=== PATIENT | female | born 1965 | race Caucasian/White ===

== ENCOUNTER 2017-11-22 07:56 | Outpatient (CLI) | payer BC | END 2017-11-22 07:57 | disposition home or self-care (01) | LOC: BICMAMMO 07:56 | PROVIDERS: ATTEND Obstetrics & Gynecology | DX: Z12.31 Encounter for screening mammogram for malignant neoplasm of breast (principal); R92.1 Mammographic calcification found on diagnostic imaging of breast; Z80.3 Family history of malignant neoplasm of breast | CPT/HCPCS: 77063; 77067 ==

== ENCOUNTER 2018-12-27 14:21 | Outpatient (CLI) | payer OTHER ==
--- NOTE | 2018-12-27 15:12 | MMO ---
Bilateral MAMMO Bilat Screen [facility]. CLINICAL HISTORY: Patient is 53 years old and is seen for screening. The patient has no family history of breast cancer. The patient has no personal history of cancer. VIEWS: The views performed were: bilateral craniocaudal with tomosynthesis and bilateral mediolateral oblique with tomosynthesis. FILMS COMPARED: The present examination has been compared to prior imaging studies performed at [facility] on 02/02/2014, 09/21/2015, 09/22/2016 and 11/22/2017. This study has been interpreted with the assistance of computer-aided detection. MAMMOGRAM FINDINGS: The breasts are heterogeneously dense, which could obscure a lesion on mammography. There are no suspicious masses, suspicious calcifications, or new areas of architectural distortion. IMPRESSION: THERE IS NO MAMMOGRAPHIC EVIDENCE OF MALIGNANCY. A ROUTINE FOLLOW-UP MAMMOGRAM IN 1 YEAR IS RECOMMENDED. THE RESULTS OF THIS EXAM WERE SENT TO THE PATIENT. ACR BI-RADS Category 1 - Negative MAMMOGRAPHY NOTE: 1. A negative mammogram report should not delay a biopsy if a dominant of clinically suspicious mass is present. 2. Approximately 10% to 15% of breast cancers are not detected by mammography. 3. Adenosis and dense breasts may obscure an underlying neoplasm. Reported by: ANTHONY BROWNLEE MD Electonically Signed: [id number]
== END 2018-12-27 14:22 | disposition home or self-care (01) ==
LOC: BICMAMMO 14:21
PROVIDERS: ATTEND Obstetrics & Gynecology
DX: Z12.31 Encounter for screening mammogram for malignant neoplasm of breast (principal)
CPT/HCPCS: 77063; 77067

== ENCOUNTER 2021-01-11 14:11 | Outpatient (CLI) | payer BC | END 2021-01-11 14:12 | disposition home or self-care (01) | LOC: BICMAMMO 14:11 | PROVIDERS: ATTEND Obstetrics & Gynecology | DX: Z12.31 Encounter for screening mammogram for malignant neoplasm of breast (principal) | CPT/HCPCS: 77063; 77067 ==

== ENCOUNTER 2022-01-05 06:09 | Day surgery (SDC) | payer BC ==
[2022-01-04 09:51] VITALS: BMI 22.2
[~2022-01-05 06:09] MED LIST: Fluorouracil 100 MG, Enoxaparin Sodium 25 MG, EPINEPHrine 0.3 MG in Ophthalmic Irrigati... IRR SCH
[2022-01-05] MEDS ORDERED: fentaNYL Citrate/PF 100 MCG/2 ML SYRINGE ONE (06:38)
[2022-01-05] MEDS ORDERED: Midazolam HCl 2 mg/2 ml Vial ONE (06:38)
[2022-01-05] MEDS ORDERED: PROPOFOL 20 ML ONE (06:39)
[2022-01-05] MEDS ORDERED: Phenylephrine 2.5% Ophth Soln 5 ML BOT ONE (06:52)
[2022-01-05] MEDS ORDERED: Cyclopentolate 1% Opth Drop 2 ML BOT ONE (06:52)
[2022-01-05] MEDS ORDERED: Enoxaparin Sodium 30 MG/0.3 ML SYRINGE ONE (08:06)
[2022-01-05] MEDS ORDERED: Lidocaine 4% PF 5 ML AMP ONE (08:06)
[2022-01-05] MEDS ORDERED: Triamcinolone 40 MG/ML VIAL ONE (08:06)
[2022-01-05] MEDS ORDERED: Lidocaine 1% PF 5 ML VIAL ONE (08:06)
[2022-01-05] MEDS ORDERED: Maxitrol 0.1% Opth Oint 3.5 GM TUBE ONE (08:06)
[2022-01-05] MEDS ORDERED: Bupivacaine 0.75% 10 ML VIAL ONE (08:06)
[2022-01-05] MEDS ORDERED: CEFAZOLIN 1 GM VIAL ONE (08:06)
== END 2022-01-05 09:16 | disposition home or self-care (01) ==
LOC: SDC 06:09
PROVIDERS: ATTEND Ophthalmology Retina Specialist
PROC: 08QF3ZZ Repair Left Retina, Percutaneous Approach (ICD-10-PCS; principal; 2022-01-05)
DX: H33.022 Retinal detachment with multiple breaks, left eye (principal); Z79.890 Hormone replacement therapy; Z79.899 Other long term (current) drug therapy; Z98.41 Cataract extraction status, right eye; Z98.42 Cataract extraction status, left eye; Z96.1 Presence of intraocular lens
CPT/HCPCS: 67025; J0171; J0690; J1650; J2250; J2704; J3301; J3490; J9190

== ENCOUNTER 2022-01-26 12:27 | Outpatient (CLI) | payer BC | END 2022-01-26 12:28 | disposition home or self-care (01) | LOC: BICMAMMO 12:27 | PROVIDERS: ATTEND Obstetrics & Gynecology | DX: Z12.31 Encounter for screening mammogram for malignant neoplasm of breast (principal) | CPT/HCPCS: 77063; 77067 ==

== ENCOUNTER 2023-01-25 08:58 | Outpatient (CLI) | payer OTHER | END 2023-01-25 08:59 | disposition home or self-care (01) | LOC: BICMAMMO 08:58 | PROVIDERS: ATTEND Internal Medicine | DX: M81.0 Age-related osteoporosis without current pathological fracture (principal); M85.851 Other specified disorders of bone density and structure, right thigh; M85.852 Other specified disorders of bone density and structure, left thigh | CPT/HCPCS: 77080 ==

== ENCOUNTER 2023-02-16 11:48 | Outpatient (CLI) | payer OTHER | END 2023-02-16 11:49 | disposition home or self-care (01) | LOC: BICMAMMO 11:48 | PROVIDERS: ATTEND Internal Medicine | DX: Z12.31 Encounter for screening mammogram for malignant neoplasm of breast (principal); M81.0 Age-related osteoporosis without current pathological fracture | CPT/HCPCS: 72072; 77063; 77067 ==

== ENCOUNTER 2024-03-26 10:45 | Outpatient (CLI) | payer OTHER | END 2024-03-26 10:46 | disposition home or self-care (01) | LOC: BICMAMMO 10:45 | PROVIDERS: ATTEND Obstetrics & Gynecology | DX: Z12.31 Encounter for screening mammogram for malignant neoplasm of breast (principal); M85.89 Other specified disorders of bone density and structure, multiple sites | CPT/HCPCS: 77063; 77067; 77080 ==